=== PATIENT | female | born 1995 | race African-American/Black ===

== ENCOUNTER 2018-11-05 22:32 | Emergency (ER) | payer OTHER ==
--- OUTSIDE RECORDS SUMMARY | 2018-11-05 22:34 | XMS REPORT ---
:1995 [facility] [place] [address] [place] [id number] Care Team Providers Name Role Phone Unavailable Unavailable Unavailable Payers Payer Name Policy Type Policy Number Effective Date Expiration Date Problems This patient has no known problems. Allergies, Adverse Reactions, Alerts Allergy Allergy Status Severity Reaction(s) Onset Inactive Treating Comments Name Type Date Date Clinician No Known DA Active U 2018-02 Allergies -12 00:00:0 0 Medications This patient has no known medications.
[2018-11-05 23:35] LABS: Urine Blood 2+ (NEG); Urine Glucose NEGATIVE (NEG); Urine Protein 2+ (NEG); Urine Specific Gravity >1.030 (1.005-1.030); Urine pH 5.5 (5.0-7.0)
[2018-11-06] MEDS ORDERED: IBUPROFEN 400 MG TAB ONE (00:23)
[2018-11-06] MEDS ORDERED: ONDANSETRON 4 MG (ODT) TAB ONE (00:24)
[2018-11-06] MEDS ORDERED: IBUPROFEN 200 MG TAB PO ONE (00:24)
--- NOTE | 2018-11-06 00:28 | EDPHYS ---
Physician Documentation [facility] Name: Lucia Stone Age: 23 yrs Sex: Female : 1995 Arrival Date: 11/05/2018 Time: 22:35 Bed 28 Private MD: ED Physician Dominic Oakes HPI: 11/06 00:23 This 23 yrs old Black Female presents to ER via EMS with complaints of Abdominal Pain. pkl 00:23 The patient presents with pelvic pain, that is located in/on the left lower quadrant pkl and right lower quadrant. Onset: The symptoms/episode began/occurred yesterday. Associated signs and symptoms: Pertinent positives: vaginal bleeding, vomiting. The patient has experienced similar episodes in the past, a few times. 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 - Social history:: Smoking status: Patient/guardian denies using tobacco, Patient uses alcohol, occasionally. - Ebola Screening: : Patient negative for fever greater than or equal to 101.5 degrees Fahrenheit, and additional compatible Ebola Virus Disease symptoms Patient denies exposure to infectious person Patient denies travel to an Ebola-affected area in the 21 days before illness onset. ROS: 11/06 00:23 Positive for pelvic pain, vaginal bleeding. pkl Eyes: Negative for injury, pain, redness, and discharge, ENT: Negative for injury, pain, and discharge, Neck: Negative for injury, pain, and swelling, Cardiovascular: Negative for chest pain, palpitations, and edema, Respiratory: Negative for shortness of breath, cough, wheezing, and pleuritic chest pain. Abdomen/GI: Positive for abdominal pain, nausea, vomiting, of the right lower quadrant and left lower quadrant. Back: Negative for acute changes. MS/extremity: Negative for acute changes. Skin: Negative for rash. Neuro: Negative for altered mental status. Exam: 00:23 Head/Face: Normocephalic, atraumatic. Eyes: Pupils equal round and reactive to light, pkl extra-ocular motions intact. Lids and lashes normal. Conjunctiva and sclera are non-icteric and not injected. Cornea within normal limits. Periorbital areas with no swelling, redness, or edema. ENT: Nares patent. No nasal discharge, no septal abnormalities noted. Tympanic membranes are normal and external auditory canals are clear. Oropharynx with no redness, swelling, or masses, exudates, or evidence of obstruction, uvula midline. Mucous membranes moist. Neck: Trachea midline, no thyromegaly or masses palpated, and no cervical lymphadenopathy. Supple, full range of motion without nuchal rigidity, or vertebral point tenderness. No Meningismus. Chest/axilla: Normal chest wall appearance and motion. Nontender with no deformity. No lesions are appreciated. Cardiovascular: Regular rate and rhythm with a normal S1 and S2. No gallops, murmurs, or rubs. Normal PMI, no JVD. No pulse deficits. Respiratory: Lungs have equal breath sounds bilaterally, clear to auscultation and percussion. No rales, rhonchi or wheezes noted. No increased work of breathing, no retractions or nasal flaring. 00:23 Abdomen/GI: Bowel sounds: normal, Palpation: abdomen is soft and non-tender, in all quadrants. 00:23 Back: Exam negative for acute changes. 00:23 : Pelvic Exam: the exam is deferred. 00:23 Musculoskeletal/extremity: Exam is negative for acute changes. 00:23 Skin: Exam negative for rash. 00:23 Neuro: Orientation: is normal, Mentation: is normal, Cranial nerves: grossly normal, Motor: is normal, Gait: is steady. Vital Signs: 11/05 22:10 BP 119 / 87; Pulse 75; Resp 18; Temp 98.2(O); Pulse Ox 100% on R/A; Weight 77.11 kg fc (R); Height 5 ft. 6 in. (167.64 cm) (R); Pain 5/10; 23:19 BP 118 / 80; Pulse 75; Resp 17 S; Pulse Ox 100% on R/A; ca1 11/06 00:16 BP 106 / 68; Pulse 71; Resp 18 S; Pulse Ox 100% on R/A; ca1 11/05 22:10 Body Mass Index 27.44 (77.11 kg, 167.64 cm) MDM: 00:23 Patient medically screened. pkl 00:23 Data reviewed: vital signs, nurses notes, lab test result(s), UPT: negative. pkl 11/05 23:24 Order name: Urine --Ancillary (enter results); Complete Time: 00:29 ms 11/05 23:24 Order name: Urine Dipstick--Ancillary (enter results); Complete Time: 00:29 ms Administered Medications: 00:14 Drug: Motrin 600 mg Route: PO; ca1 00:14 Drug: Zofran 4 mg Route: PO; ca1 Disposition: 11/06/18 00:27 Discharged to Home. Impression: Menstrual cramps. - Condition is Stable. - Prescriptions for Ibuprofen 600 mg Oral Tablet - take 1 tablet by ORAL route 2 times per day As needed take with food; 20 tablet. Zofran 4 mg Oral Tablet - take 1 tablet by ORAL route every 12 hours As needed; 6 tablet. - Medication Reconciliation Form, Thank You Letter, Antibiotic Education, Prescription Opioid Use form. - Follow up: Private Physician; When: 2 - 3 days; Reason: Re-evaluation by your physician. - Problem is new. - Symptoms have improved. Signatures: Dispatcher [employer] EDMS Dominic Oakes MD MD pkLupe Morris RN RN Catie Ryder RN RN ca1 Corrections: (The following items were deleted from the chart) 00:33 00:27 11/06/2018 00:27 Discharged to Home. Impression: Menstrual cramps. Condition is ca1 Stable. Forms are Medication Reconciliation Form, Thank You Letter, Antibiotic Education, Prescription Opioid Use. Follow up: Private Physician; When: 2 - 3 days; Reason: Re-evaluation by your physician. Problem is new. Symptoms have improved. pkl
--- NOTE | 2018-11-06 00:28 | ER ---
Nurse's Notes [facility] Name: Lucia Stone Age: 23 yrs Sex: Female : 1995 Arrival Date: 11/05/2018 Time: 22:35 Bed 28 Private MD: Diagnosis: Menstrual cramps Presentation: 11/05 22:10 Presenting complaint: Patient states: that she started to have vomiting yesterday, then fc today started to have spotting in the morning. Then at 1930 tonight started to have severe lower abd cramping and vaginal bleeding. Also having nausea, vomiting and diarrhea. Transition of care: patient was not received from another setting of care. Onset of symptoms was November 05, 2018. Risk Assessment: Do you want to hurt yourself or someone else? Patient reports no desire to harm self or others. Initial Sepsis Screen: Does the patient meet any 2 criteria? No. Patient's initial sepsis screen is negative. Does the patient have a suspected source of infection? No. Patient's initial sepsis screen is negative. Care prior to arrival: None. 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 - Social history:: Smoking status: Patient/guardian denies using tobacco, Patient uses alcohol, occasionally. - Ebola Screening: : Patient negative for fever greater than or equal to 101.5 degrees Fahrenheit, and additional compatible Ebola Virus Disease symptoms Patient denies exposure to infectious person Patient denies travel to an Ebola-affected area in the 21 days before illness onset. Screenin:42 Abuse screen: Denies threats or abuse. Denies injuries from another. Nutritional ca1 screening: No deficits noted. Tuberculosis screening: No symptoms or risk factors identified. Fall Risk None identified. Assessment: 22:42 General: Appears in no apparent distress. comfortable, Behavior is calm, cooperative, ca1 appropriate for age. Pain: Complains of pain in abdomen Pain does not radiate. Pain currently is 3 out of 10 on a pain scale. at worst was 9 out of 10 on a pain scale. Quality of pain is described as crampy, Pain began 4 hours ago. Neuro: Level of Consciousness is awake, alert, obeys commands, Oriented to person, place, time, situation. Cardiovascular: Heart tones S1 S2 present Capillary refill < 3 seconds Patient's skin is warm and dry. Respiratory: Airway is patent Respiratory effort is even, unlabored, Respiratory pattern is regular, symmetrical, Breath sounds are clear bilaterally. GI: Abdomen is round non-distended, Bowel sounds present X 4 quads. Abd is soft X 4 quads Abdomen is tender to palpation in right lower quadrant and left lower quadrant Reports diarrhea, nausea, vomiting. : No deficits noted. No signs and/or symptoms were reported regarding the genitourinary system. EENT: No deficits noted. No signs and/or symptoms were reported regarding the EENT system. Derm: Skin is intact, is healthy with good turgor, Skin is pink, warm \T\ dry. Musculoskeletal: Circulation, motion, and sensation intact. Capillary refill < 3 seconds. 11/06 00:16 Reassessment: Patient appears in no apparent distress at this time. Patient and/or ca1 family updated on plan of care and expected duration. Pain level reassessed. Patient is alert, oriented x 3, equal unlabored respirations, skin warm/dry/pink. Vital Signs: 11/05 22:10 BP 119 / 87; Pulse 75; Resp 18; Temp 98.2(O); Pulse Ox 100% on R/A; Weight 77.11 kg fc (R); Height 5 ft. 6 in. (167.64 cm) (R); Pain 5/10; 23:19 BP 118 / 80; Pulse 75; Resp 17 S; Pulse Ox 100% on R/A; ca1 11/06 00:16 BP 106 / 68; Pulse 71; Resp 18 S; Pulse Ox 100% on R/A; ca1 11/05 22:10 Body Mass Index 27.44 (77.11 kg, 167.64 cm) ED Course: 11/05 22:10 Arm band placed on Patient placed in an exam room, on a stretcher. fc 22:35 Patient arrived in ED. ca1 22:41 Catie Ryder, RN is Primary Nurse. ca1 22:42 Patient has correct armband on for positive identification. Placed in gown. Bed in low ca1 position. Call light in reach. Side rails up X 1. Pulse ox on. NIBP on. Warm blanket given. 22:46 Triage completed. 04 00:23 Dominic Oakes MD is Attending Physician. pkl 00:32 No provider procedures requiring assistance completed. Patient did not have IV access ca1 during this emergency room visit. Administered Medications: 00:14 Drug: Motrin 600 mg Route: PO; ca1 00:14 Drug: Zofran 4 mg Route: PO; ca1 Outcome: 00:27 Discharge ordered by MD. pkl 00:32 Discharged to home ambulatory, with family. ca1 00:32 Condition: stable 00:32 Discharge instructions given to patient, Instructed on discharge instructions, follow up and referral plans. medication usage, Demonstrated understanding of instructions, follow-up care, medications, Prescriptions given X 2. 00:33 Patient left the ED. ca1 Signatures: Dominic Oakes MD MD pkl Lupe Lara RN RN Catie Ryder, MARYAM RN ca1
== END 2018-11-06 00:33 | disposition home or self-care (01) ==
LOC: ER 22:32
DX: N94.6 Dysmenorrhea, unspecified (principal); D64.9 Anemia, unspecified; F41.9 Anxiety disorder, unspecified
CPT/HCPCS: 81003; 81025; 99284